=== PATIENT | male | born 1965 | race Caucasian/White ===

== ENCOUNTER 2017-02-12 16:52 | Emergency (ER) | payer OTHER ==
[~2017-02-12 16:52] MED LIST: LEVAQUIN PO
[2017-02-12 19:40] LABS: URINE SOURCE CLEAN CATCH
[2017-02-12 19:45] LABS: BASOPHIL% 0.4 % (0-2.5); EOSINOPHIL% 0.1 % (0.0-7.0); HEMATOCRIT 50.9 % (38.0-50.0); HEMOGLOBIN 16.9 gm/dL (13.0-16.0); LYMPHOCYTE# 2.6 X10e3 (1.0-3.5); LYMPHOCYTE% 33.2 % (17.0-45.0); MEAN CORPUSCULAR HEMOGLOBIN 29.8 PG (28-34); MEAN CORPUSCULAR HGB CONC 33.1 g/dL (30-36); MEAN PLATELET VOLUME 8.1 FL (6.5-11.5); MONOCYTE# 0.5 X10e3 (0-1.0); MONOCYTE% 6.8 % (3.0-12.0); NEUTROPHIL# 4.7 X10e3 (1.5-7.1); NEUTROPHIL% 59.5 % (40-75); PLATELET COUNT 317 X10e3 (140-420); RED BLOOD COUNT 5.66 X10e (3.90-5.60); RED CELL DISTRIBUTION WIDTH 14.4 % (11.0-15.5); WHITE BLOOD COUNT 7.8 X10e3 (4.0-10.5)
[2017-02-12 19:47] LABS: DIFF IND NO
[2017-02-12 19:49] LABS: URINE APPEARANCE CLEAR; URINE BILIRUBIN NEG (NEG); URINE BLOOD NEG (NEG); URINE COLOR YELLOW; URINE GLUCOSE NEG (NEG); URINE KETONE NEG (NEG); URINE LEUKOCYTE ESTERASE NEG (NEG); URINE NITRATE NEG (NEG); URINE PROTEIN TRACE (NEG); URINE SPECIFIC GRAVITY 1.012 (1.003-1.035)
[2017-02-12 19:59] LABS: AMPHETAMINE NEG (NEG); BARBITURATES NEG (NEG); BENZODIAZEPINES NEG (NEG); COCAINE NEG (NEG); CULTURE INDICATED? NO; MARIJUANA NEG (NEG); OPIATES NEG (NEG); TRICYCLIC ANTIDEPRESSANTS NEG (NEG); U METHADONE NEG (NEG)
[2017-02-12 20:18] LABS: ALBUMIN SERUM 4.1 g/dL (3.5-5.0); ALKALINE PHOSPHATASE 81 U/L (32-92); ALT (SGPT) 53 U/L (10-40); AST (SGOT) 56 U/L (10-42); BILIRUBIN,TOTAL 0.7 mg/dL (0.2-2.0); BLOOD UREA NITROGEN 16 mg/dL (9-23); BUN/CREATININE RATIO 17.77; CALCIUM SERUM 8.4 mg/dL (8.4-10.2); CARBON DIOXIDE 27 mmol/L (22-31); CHLORIDE 96 mmol/L (100-111); CREATININE SERUM 0.9 mg/dL (0.6-1.4); GLOM FILT RATE Estimated 97.2 mL/min (>60); GLUCOSE FASTING 163 mg/dL (70-110); LIPASE 40 U/L (22-51); POTASSIUM 3.9 mmol/L (3.5-5.1); SODIUM 136 mmol/L (135-145)
[2017-02-12 20:24] LABS: ALCOHOL BLOOD 303 mg/dL (0); BILIRUBIN, DIRECT <0.1 mg/dL (0.0-0.2); BILIRUBIN,INDIRECT 0.6 mg/dL (0.0-0.9)
== END 2017-02-12 21:00 | disposition left against medical advice (07) ==
LOC: CED 16:52
PROVIDERS: Emergency Medicine
DX: F10.129 Alcohol abuse with intoxication, unspecified (principal); E11.9 Type 2 diabetes mellitus without complications; I10 Essential (primary) hypertension
CPT/HCPCS: 80048; 80076; 80307; 81003; 83690; 85025; 99284; G0480